=== PATIENT | female | born 1970 | race Caucasian/White ===

== ENCOUNTER 2017-07-14 11:23 | Day surgery (SDC) | payer OTHER ==
[~2017-07-14] VITALS: Ht 177.8 cm; Wt 83.6 kg
[2017-07-14 11:54] VITALS: BP 119/72; PULSE 78; TEMP 97.4
[2017-07-14 13:56] VITALS: BP 110/68; PULSE 66
[2017-07-14 14:11] VITALS: BP 118/72; PULSE 80
[2017-07-14 14:26] VITALS: BP 119/72; PULSE 80
== END 2017-07-14 14:40 | disposition home or self-care (01) ==
LOC: SDCO 11:23
DX: K20.0 Eosinophilic esophagitis (principal); K29.60 Other gastritis without bleeding; K29.80 Duodenitis without bleeding; R13.10 Dysphagia, unspecified; K64.0 First degree hemorrhoids; Z86.010 Personal history of colon polyps; Z80.9 Family history of malignant neoplasm, unspecified; K59.00 Constipation, unspecified
CPT/HCPCS: OP; J2250; J2405; J3010; J7030

== ENCOUNTER 2020-06-22 09:40 | Day surgery (SDC) | payer OTHER ==
[~2020-06-22] VITALS: Ht 175.3 cm; Wt 81.9 kg
[2020-06-22 10:11] VITALS: BP 109/81; PULSE 65; TEMP 98.8
[2020-06-22] MEDS ORDERED: AMITRIPTYLINE H10 M1 PO (10:14)
[2020-06-22] MEDS ORDERED: PRILOSEC 20MG20 MG PO (10:15)
[2020-06-22] MEDS ORDERED: MAXALT MLT10 MG/TAB PO (10:16)
[2020-06-22 13:05] VITALS: BP 104/74; PULSE 78; TEMP 98.2
--- NOTE | 2020-06-22 13:05 | NUR ---
TO BAY 4 PER CART FROM ENDOSCOPY. ALERT ORIENTED X3, TALKING TO STAFF AND HUSNAND. AMBULATED TO RECLINER WITH ASSIST AND TOLERATED WELL.
[2020-06-22 13:20] VITALS: BP 108/78; PULSE 65
--- NOTE | 2020-06-22 13:20 | NUR ---
RECEIVED WATER AND TAKING SIPS.
--- NOTE | 2020-06-22 13:30 | NUR ---
DR ELDER INTO TALK WITH PATIENT AND HER .
--- NOTE | 2020-06-22 13:45 | NUR ---
AMBULATED TO BATHROOM. VOIDED AND TOLERATED WELL.
--- NOTE | 2020-06-22 13:50 | NUR ---
DISCONTINUED IV AND INT - CATHETER INTACT
--- NOTE | 2020-06-22 13:55 | NUR ---
RECEIVED DISCHARGE INSTRUCTIONS AND VERBALIZED UNDERSTANDING.
--- NOTE | 2020-06-22 14:00 | NUR ---
DISCHARGED PER WC BY NURSING STAFF TO PRIVATE CAR IN CARE OF CHIP.
[2020-06-22 14:15] VITALS: BP 104/74; PULSE 76
== END 2020-06-22 14:13 | disposition home or self-care (01) ==
LOC: SDCO 09:40
DX: K21.00 Gastro-esophageal reflux disease with esophagitis, without bleeding (principal); K29.70 Gastritis, unspecified, without bleeding; K59.00 Constipation, unspecified; K64.0 First degree hemorrhoids; N81.2 Incomplete uterovaginal prolapse; K62.89 Other specified diseases of anus and rectum; R93.3 Abnormal findings on diagnostic imaging of other parts of digestive tract; Z20.822 Contact with and (suspected) exposure to COVID-19; Z88.1 Allergy status to other antibiotic agents; Z88.2 Allergy status to sulfonamides; Z79.899 Other long term (current) drug therapy; Z90.710 Acquired absence of both cervix and uterus; Z80.3 Family history of malignant neoplasm of breast; Z80.0 Family history of malignant neoplasm of digestive organs; Z82.49 Family history of ischemic heart disease and other diseases of the circulatory system
CPT/HCPCS: J2704; J3010; J7120